=== PATIENT | female | born 1995 | race Caucasian/White ===

== ENCOUNTER 2017-04-09 21:03 | Emergency (ER) | payer OTHER ==
[~2017-04-09] VITALS: Ht 165.1 cm; Wt 54.5 kg
[2017-04-09 21:05] VITALS: TEMP 98.1
[2017-04-09 22:03] LABS: COLLECTION METHOD CLEAN CATCH
[2017-04-09 22:05] LABS: BASO # 0.1 (0.0-0.2); BASO % 0.4 % (0.0-2.0); EOS # 0.1 (0.0-0.7); EOS % 0.8 % (0-4.0); GRAN # 11.5 (1.4-6.5); GRAN % 83.8 % (42.2-75.2); LYMPH # 1.3 (1.2-3.4); LYMPH % 9.8 % (20.0-51.0); MEAN CELL VOLUME 88 fl (80.0-95.0); MEAN CORPUSCULAR HGB CONC 35 g/dl (33.0-37.0); MEAN PLATELET VOLUME 9.9 fl (7.4-10.4); MONO # 0.6 (0.1-0.6); MONO % 4.7 % (1.7-9.3); PLATELET COUNT 243 K/mm3 (130-400); RED BLOOD COUNT 3.86 M/mm3 (4.10-5.30); WHITE BLOOD COUNT 13.7 K/mm3 (4.8-10.8)
[2017-04-09 22:06] LABS: HEMATOCRIT 34.1 % (35.0-45.0); HEMOGLOBIN 11.8 g/dl (12.0-15.0); MEAN CORPUSCULAR HEMOGLOBIN 31 pg (26.0-32.0)
[2017-04-09 22:08] LABS: MUCOUS Present /lpf; PH 5 (5-8); SQUAMOUS EPITHELIAL None Seen /hpf; URINE APPEARANCE Clear; URINE BACTERIA None Seen /hpf; URINE BILIRUBIN Negative (NEGATIVE); URINE BLOOD 2+ (NEGATIVE); URINE COLOR Straw; URINE GLUCOSE Negative (NEGATIVE); URINE KETONE Trace (NEGATIVE); URINE LEUKOCYTE ESTERASE Negative (NEGATIVE); URINE PROTEIN(semi-quant) Negative (NEGATIVE); URINE RBC 0-2 /hpf; URINE UROBILINOGEN Negative (NEGATIVE); URINE WBC 0-2 /hpf
[2017-04-09 22:19] LABS: ADJUSTED CALCIUM 8.5 mg/dL (8.4-10.2); ALANINE AMINOTRANSFERASE 32 U/L (9-52); ALBUMIN 4.7 gm/dL (3.5-5.0); ALKALINE PHOSPHATASE 85 U/L (50-136); ANION GAP 10 mmol/L (7-16); BILIRUBIN,TOTAL 0.6 mg/dL (0.0-1.0); BLOOD UREA NITROGEN 13 mg/dL (7-17); C-REACTIVE PROTEIN < 0.5 mg/dL (0.0-0.9); CALCIUM 9.1 mg/dL (8.4-10.2); CARBON DIOXIDE 24 mmol/L (22-30); CHLORIDE 102 mmol/L (98-107); GLUCOSE 107 mg/dL (74-106); LIPASE 36 U/L (23-300); POTASSIUM 4.2 mmol/L (3.4-5.0); SODIUM 137 mmol/L (137-145); TOTAL PROTEIN 7.4 gm/dL (6.4-8.2)
[2017-04-09 23:09] VITALS: BP 111/58; PULSE 90
== END 2017-04-09 23:11 | disposition home or self-care (01) ==
LOC: COL.ER 21:03 → EDBD 21:12 → COL.ER 21:12
PROVIDERS: Emergency Medicine
DX: J06.9 Acute upper respiratory infection, unspecified (principal); R10.84 Generalized abdominal pain; R11.2 Nausea with vomiting, unspecified; R55 Syncope and collapse
CPT/HCPCS: J1885; J2405; J7030